=== PATIENT | male | born 1970 | race Two or more races ===

== ENCOUNTER 2021-11-12 10:11 | Emergency (ER) | payer MEDICAID, OTHER ==
[~2021-11-12] VITALS: Ht 177.8 cm; Wt 93.0 kg
[2021-11-12 11:24] VITALS: BP 129/77
[2021-11-12] MEDS ORDERED: NAP500T PO (11:24)
[2021-11-12] MEDS ORDERED: KETOROLAC TROMETH 60MG/2ML VIAL IM ONE (11:30)
== END 2021-11-12 14:00 | disposition home or self-care (01) ==
LOC: ER 10:11
DX: M25.542 Pain in joints of left hand (principal); M25.541 Pain in joints of right hand; F17.210 Nicotine dependence, cigarettes, uncomplicated
CPT/HCPCS: 73130; 96372; 99283; J1885